=== PATIENT | female | born 2000 | race Caucasian/White ===

== ENCOUNTER 2021-01-18 03:21 | Outpatient (CLI) | payer BC, SELFPAY ==
[2021-01-18 15:23] LABS: Abs Immature Grans 0.03 10^3/uL (0.0-0.06); Absolute Basophil Count 0.04 10^3/uL (0.0-0.2); Absolute Eosinophil Count 0.16 10^3/uL (0.0-0.7); Absolute Lymphocyte Count 3.04 10^3/uL (1.2-3.4); Absolute Monocyte Count 0.82 10^3/uL (0.1-0.8); Absolute Neutrophil Count 5.03 10^3/uL (1.2-6.7); Basophils % 0.4; Eosinophils % 1.8; HCT 38.3 % (36.0-46.0); Immature Grans % 0.3; Lymphocytes % 33.3; MCH 29.8 pg (27.0-33.0); MCHC 33.9 % (32.0-36.0); MCV 87.8 fL (80-95); MPV 9.4 fL (8.0-11.0); Neutrophils % 55.2; Nucleated RBC 0 %; Platelet Count 360 10^3/uL (130-400); RBC 4.36 10^6/uL (3.93-5.22); RDW 12.6 % (11.7-14.6); RDW-SD 40.4 fL; WBC 9.12 10^3/uL (4.4-10.8)
[2021-01-18 17:06] LABS: ALT 23 U/L (14-59); AST 10 U/L (15-37); Albumin 3.6 g/dL (3.4-5.0); Alkaline Phosphatase 55 U/L (46-116); BUN 10 mg/dL (7-18); Bilirubin, Total 0.2 mg/dL (0.2-1.0); CREATININE 0.8 mg/dL (0.55-1.02); Calcium 9.2 mg/dL (8.5-10.1); Chloride 104 mmol/L (98-107); Glucose 132 mg/dL (74-106); Potassium 4.1 mmol/L (3.5-5.1); Sodium 141 mmol/L (136-145); TSH (W/Ref FT4) 1.44 uIU/mL (0.36-3.74); Total Protein 6.7 g/dL (6.4-8.2); Vitamin B12 608 pg/mL (193-986)
== END 2021-01-18 03:22 | disposition home or self-care (01) ==
LOC: LBO 03:21
PROVIDERS: Visit Provider Nurse Practitioner Family
DX: F31.62 Bipolar disorder, current episode mixed, moderate (principal); R45.851 Suicidal ideations; F42.2 Mixed obsessional thoughts and acts; Z79.899 Other long term (current) drug therapy
CPT/HCPCS: 36415; 80053; 82607; 84443; 85025

== ENCOUNTER 2022-07-23 14:48 | Emergency (ER) | payer BC, SELFPAY ==
[2022-07-23 15:00] VITALS: BP 140/75; PULSE 78; RESP 16; TEMP 36.8; O2SAT 100
[2022-07-23 15:14] LABS: Bilirubin Negative (Negative); Blood Large (Negative); Clarity Sl Cloudy (Clear); Glucose Negative (Negative); Ketones Negative (Negative); Leukocyte Esterase Trace (Negative); Nitrite Positive (Negative); Specific Gravity 1.025 (1.005-1.025)
[2022-07-23 15:21] LABS: C & S Indicated? Yes; RBC >50 HPF (0-2); WBC >50 HPF (0-5)
--- NOTE | 2022-07-23 15:57 | W.ED.GENAD ---
Discharge Plan Disposition Patient Disposition: Home Condition: Stable Discharge Details Clinical Impression: UTI (urinary tract infection) Primary Care Provider: Rajani,Local ED Provider: Magali Soriano Home Meds and New Rx's Prescriptions: New cephalexin 500 mg tablet 500 mg PO BID 7 Days Qty: 14 0RF phenazopyridine [Pyridium] 100 mg tablet 100 mg PO TID PRNQty: 6 0RF Discharge Instructions Instructions: Urinary Tract Infection in Women (ED) Additional Instructions: Take the antibiotic twice daily for the next 7 days as prescribed take it with yogurt or probiotic. Take the Pyridium up to 3 times daily as needed for pain. This will turn your urine bright orange and may stain your clothes so be aware of that. Follow up with primary care provider in 3-5 days. Return to ED sooner if any worsening pain, fever, vomiting or concerns. Increase oral fluids. Please take Tylenol or Ibuprofen with food every 4-6 hours as needed for pain and swelling. Discharge Data Discharge Date/Time-TO BE ENTERED AT DEPARTURE: 07/23/22 16:16 Medical Decision Making 22-year-old female presents to the ER with chief complaint of suprapubic abdominal tenderness and hematuria with dysuria for the last couple of days. She denies any vomiting. Urine here obtained by air liaison and special staff shows positive WBCs and RBCs large blood positive nitrites negative . We will plan to place patient on cephalexin and Pyridium. I did discuss with her option for CT imaging to rule out kidney stone she is concerned for financial reasons at this time and has declined further imaging I did discuss with her that I cannot rule out kidney stone or kidney infection at this point she verbalizes understanding. Patient given cephalexin and Pyridium and a prescription discussed return instructions and home care, verbalized understanding. This text was generated using [employer] dictation system, please disregard any oddities of phrase or misspellings. Lab Data Lab results reviewed: Yes I reviewed the patient's lab results. Labs: 07/23/22 14:59 Urine - Reflex from Ua Urine Culture - Pending Laboratory Tests Range/Units 07/23/22 14:59 Urine Color (Yellow) Brown Urine Clarity (Clear) Sl Cloudy Urine pH (5-8) 7.0 Ur Specific Nunda (1.005-1.025) 1.025 Urine Protein (Negative) mg/dL 100 H Urine Ketones (Negative) mg/dL Negative Urine Blood (Negative) Large H Urine Nitrite (Negative) Positive H Urine Bilirubin (Negative) Negative Urine Urobilinogen (Up TO 0.2) EU/dL 1.0 H Ur Leukocyte Esterase (Negative) Trace H Urine RBC (0-2) HPF >50 H Urine WBC (0-5) HPF >50 H Ur Epithelial Cells Not Applicable Urine Crystals Not Applicable Urine Bacteria Not Applicable Urine Mucus Not Applicable Ur Culture Indicated? Yes Urine Glucose (Negative) mg/dL Negative HPI General Mode of arrival: ambulatory. Date/Time Provider Initiated Documentation: 07/23/22 15:17. Limitations to Documentation: no limitations. Information obtained by: patient, RN notes reviewed and old records reviewed. HPI Narrative: 22-year-old female presents to the ER with chief complaint of suprapubic abdominal tenderness and hematuria with dysuria for the last couple of days. She denies any vomiting. She does have chronic back pain and scoliosis this is unchanged. Last normal menstrual period was 2 weeks ago. She has not taken any Tylenol or ibuprofen since yesterday. Related Data Home Medications Medication Instructions Recorded Confirmed cephalexin 500 mg tablet 500 mg PO BID 7 days #14 tabs 07/23/22 phenazopyridine 100 mg tablet 100 mg PO TID PRN 6 doses #6 tabs 07/23/22 (Pyridium) Previous Rx's Medication Instructions Recorded cephalexin 500 mg tablet 500 mg PO BID 7 days #14 tabs 07/23/22 phenazopyridine 100 mg tablet 100 mg PO TID PRN 6 doses #6 tabs 07/23/22 (Pyridium) Allergies Allergy/AdvReac Type Severity Reaction Status Date / Time No Known Allergies Allergy Unverified 07/23/22 15:02 General Stated Complaint: Urinary RADHA: 4 Review of Systems All systems reviewed & are unremarkable except as noted in HPI and below Constitutional Constitutional: Denies body ache(s), Denies chills and Denies fever(s) Gastrointestinal Gastrointestinal: Reports abdominal pain (Siprapubic cramping), Denies diarrhea, Denies nausea and Denies vomiting Genitourinary Genitourinary: Reports as per HPI, Reports hematuria, Reports dysuria, Denies flank pain, Reports urinary hesitancy, Reports urinary urgency and Denies vaginal discharge PFSH All Active Problems UTI (urinary tract infection) (Acute) Social History Smoking/Tobacco Use Status: Never Smoking risk assessment performed?: Yes Alcohol Intake: never Drug use: Never Substance use type: does not use Do you feel safe at home: Yes Do you feel safe in your relationship?: Yes Exam Narrative Exam Narrative: Constitutional: Alert and oriented x3. Appears stated age. Normal body habitus. Head: Normocephalic, no trauma. Eyes: Pupils PERRL, EOM's intact. Eyelids symmetrical without lesions, discharge, or swelling. Chest: RRR, Normal S1, S2, distal pulses intact. Resp: Lungs clear to auscultation bilaterally, no wheezes, rales, or rhonchi. Abdomen: Soft, non-distended, Normoactive bowel sounds all 4 quads. Musculoskeletal: Normal gait, 5/5 strength to all four extremities. Skin: No suspicious rashes or lesions. Capillary refill less than 2 sec. Course Vital Signs Vital signs: Vital Signs Temperature 36.8 C 07/23/22 15:00 Pulse 78 07/23/22 15:00 Respiratory Rate 16 07/23/22 15:00 Blood Pressure 140/75 07/23/22 15:00 Pulse Oximetry 100 07/23/22 15:00 Temperature 36.8 C 07/23/22 15:00 Temperature Source Skin 07/23/22 15:00 Pulse 78 07/23/22 15:00 Respiratory Rate 16 07/23/22 15:00 Respiratory Effort 07/23/22 15:02 Blood Pressure 140/75 07/23/22 15:00 Blood Pressure Position Sitting 07/23/22 15:00 Pulse Oximetry 100 07/23/22 15:00 Oxygen Delivery Method Room Air 07/23/22 15:00 Oxygen Flow Rate 0 07/23/22 15:00 Pain Level 7 07/23/22 15:03 Lab/Test Results Lab/Test Results: 07/23/22 14:59 Urine - Reflex from Ua Urine Culture - Pending Laboratory Tests Range/Units 07/23/22 14:59 Urine Color (Yellow) Brown Urine Clarity (Clear) Sl Cloudy Urine pH (5-8) 7.0 Ur Specific Nunda (1.005-1.025) 1.025 Urine Protein (Negative) mg/dL 100 H Urine Ketones (Negative) mg/dL Negative Urine Blood (Negative) Large H Urine Nitrite (Negative) Positive H Urine Bilirubin (Negative) Negative Urine Urobilinogen (Up TO 0.2) EU/dL 1.0 H Ur Leukocyte Esterase (Negative) Trace H Urine RBC (0-2) HPF >50 H Urine WBC (0-5) HPF >50 H Ur Epithelial Cells Not Applicable Urine Crystals Not Applicable Urine Bacteria Not Applicable Urine Mucus Not Applicable Ur Culture Indicated? Yes Urine Glucose (Negative) mg/dL Negative POC- Test(urine) Negative
[2022-07-23] MEDS: Phenazopyridine 100 MG TAB PO (16:16)
[2022-07-23] MEDS: Cephalexin 500 MG CAP PO (16:16)
[2022-07-23] MEDS: Cephalexin 500 MG CAP, 2 CAPS/BTL PO (16:16)
[2022-07-23] MEDS: Phenazopyridine 100 MG TAB, 2 TABS/BTL PO (16:16)
== END 2022-07-23 16:16 | disposition home or self-care (01) ==
PROVIDERS: Nurse Practitioner Family; Emergency Provider Registered Nurse Emergency
DX: N39.0 Urinary tract infection, site not specified (principal); B96.20 Unspecified Escherichia coli [E. coli] as the cause of diseases classified elsewhere
CPT/HCPCS: 81025; 87077; 99283; 81003; 81015; 87086; 87186; 99284

== ENCOUNTER 2023-01-04 02:48 | Outpatient (CLI) | payer BC, SELFPAY ==
[2023-01-04 15:13] LABS: Abs Immature Grans 0.01 10^3/uL (0.0-0.06); Absolute Basophil Count 0.04 10^3/uL (0.0-0.2); Absolute Eosinophil Count 0.07 10^3/uL (0.0-0.7); Absolute Lymphocyte Count 2.12 10^3/uL (1.2-3.4); Absolute Neutrophil Count 3.05 10^3/uL (1.2-6.7); Basophils % 0.7; Eosinophils % 1.2; HCT 38.2 % (36.0-46.0); HGB 13.4 g/dL (11.2-15.7); Immature Grans % 0.2; Lymphocytes % 37.3; MCH 31.7 pg (27.0-33.0); MCHC 35.1 % (32.0-36.0); MCV 90 fL (80-95); MPV 9.8 fL (8.0-11.0); Neutrophils % 53.6; Platelet Count 334 10^3/uL (130-400); RBC 4.23 10^6/uL (3.93-5.22); RDW 11.9 % (11.7-14.6); RDW-SD 39.6 fL; WBC 5.69 10^3/uL (4.4-10.8)
[2023-01-04 15:27] LABS: Hemoglobin A1C 5.5 % (<5.7)
[2023-01-04 15:59] LABS: Anion Gap 9.3 mmol/L (3-11); BUN 10 mg/dL (7-18); CO2 26.7 mmol/L (21.0-32.0); CREATININE 0.7 mg/dL (0.55-1.02); Calcium 9.3 mg/dL (8.5-10.1); Chloride 104 mmol/L (98-107); Estimated GFR 125.33 (mL/min/1.73m2); Glucose 104 mg/dL (74-106); Potassium 3.7 mmol/L (3.5-5.1); Sodium 140 mmol/L (136-145)
== END 2023-01-04 02:49 | disposition home or self-care (01) ==
LOC: LBO 02:48
PROVIDERS: PCP Nurse Practitioner Family; Visit Provider Nurse Practitioner Family
DX: F32.9 Major depressive disorder, single episode, unspecified (principal); F41.0 Panic disorder [episodic paroxysmal anxiety]; G47.00 Insomnia, unspecified; R73.03 Prediabetes
CPT/HCPCS: 36415; 80048; 83036; 84443; 85025

== ENCOUNTER 2025-04-28 12:43 | Outpatient (CLI) | payer BC, SELFPAY ==
[2025-04-28 13:00] LABS: HCT 40.9 % (36.0-46.0); HGB 14.5 g/dL (11.2-15.7); MCH 31.7 pg (27.0-33.0); MCHC 35.5 % (32.0-36.0); MCV 89 fL (80-95); MPV 9.5 fL (8.0-11.0); Platelet Count 327 10^3/uL (130-400); RBC 4.58 10^6/uL (3.93-5.22); RDW 11.8 % (11.7-14.6); RDW-SD 38.1 fL; WBC 7.06 10^3/uL (4.4-10.8)
[2025-04-28 13:22] LABS: Hemoglobin A1C 5.8 % (<5.7)
[2025-04-28 14:44] LABS: ALT 20 U/L (14-59); AST 19 U/L (15-37); Albumin 4.0 g/dL (3.4-5.0); Alkaline Phosphatase 39 U/L (46-116); Anion Gap 9.9 mmol/L (3-11); BUN 7 mg/dL (7-18); Bilirubin, Total 0.5 mg/dL (0.2-1.0); CO2 28.1 mmol/L (21.0-32.0); Calcium 9.3 mg/dL (8.5-10.1); Calculated LDL 73 mg/dL (<100); Chloride 102 mmol/L (98-107); Cholesterol 161 mg/dL (<200); Estimated GFR 127.67 (mL/min/1.73m2); Glucose 109 mg/dL (74-106); HDL Cholesterol 81 mg/dL (>or=50); Potassium 4.2 mmol/L (3.5-5.1); Sodium 140 mmol/L (136-145); TSH (W/Ref FT4) 1.42 uIU/mL (0.36-3.74); Total Protein 7.3 g/dL (6.4-8.2); Triglyceride 35 mg/dL (<150); Vitamin B12 993 pg/mL (193-986); Vitamin D 25 Total 15 ng/mL (30-100)
== END 2025-04-28 12:44 | disposition home or self-care (01) ==
LOC: LBO 12:47
PROVIDERS: PCP Nurse Practitioner Family; Visit Provider Nurse Practitioner Family
DX: Z00.00 Encounter for general adult medical examination without abnormal findings (principal); F41.1 Generalized anxiety disorder; R73.03 Prediabetes; G47.00 Insomnia, unspecified; F32.9 Major depressive disorder, single episode, unspecified
CPT/HCPCS: 36415; 80053; 80061; 82306; 85027; 82607; 83036; 84443